=== PATIENT | female | born 1985 | race Two or more races ===

== ENCOUNTER 2024-09-11 01:17 | Emergency (ER) | payer OTHER ==
[~2024-09-11] VITALS: Ht 157.5 cm; Wt 63.5 kg
[2024-09-11] MEDS ORDERED: CLONIDINE HCL 0.1 MG TABLET ONE (01:58)
[2024-09-11] MEDS: CLONIDINE HCL 0.1 MG TABLET PO ONE (02:00)
[2024-09-11 02:03] LABS: ABG BASE EXCESS 1.5 mmol/L (-2.0-3.0); ABG OXYGEN SATURATION 96.2 % (94.0-98.0); ABG PH 7.378 (7.350-7.450); ABG PO2 92.3 mmHg (83.0-108.0); ABG TOTAL HEMOGLOBIN 11.1 G/dL (12.0-16.0); COHb 0.2 % (0.5-1.5); MetHb 0.1 % (0.0-1.5); O2Hb 95.9 % (94.0-97.0); SITE, ABG LEFT RADIAL
[2024-09-11 02:10] LABS: BASOPHILS # (AUTO) 0.1 K/uL (0.0-0.2); BASOPHILS % (AUTO) 0.7 % (0.0-2.0); EOSINOPHILS # (AUTO) 0.5 K/uL (0.0-0.7); EOSINOPHILS % (AUTO) 6.7 % (0.0-6.0); HEMATOCRIT 33 % (33-45); HEMOGLOBIN 10.7 g/dL (11.5-14.8); LYMPHOCYTES # (AUTO) 1.7 K/uL (0.8-4.8); LYMPHOCYTES % (AUTO) 22.1 % (20.0-44.0); MEAN CORPUSCULAR HEMOGLOBIN 28 PG (26.0-33.0); MEAN CORPUSCULAR HGB CONC 33 g/dl (31.0-36.0); MEAN CORPUSCULAR VOLUME 85 fL (82-100); MONOCYTES # (AUTO) 0.5 K/uL (0.1-1.30); NEUTROPHILS # (AUTO) 4.9 K/uL (1.8-8.9); NEUTROPHILS % (AUTO) 64.5 % (43.0-81.0); PLATELET COUNT (AUTO) 434 K/uL (150-450); RED BLOOD CELL COUNT(AUTO) 3.83 MIL/uL (4.0-5.2); RED CELL DISTRIBUTION WIDTH 16.7 % (11.5-15.0); WHITE BLOOD COUNT (AUTO) 7.6 K/uL (4.3-11.0)
[2024-09-11 02:27] LABS: CALCIUM, SERUM 8.4 mg/dL (8.5-10.1); CARBON DIOXIDE 28 mmol/L (21-32); CHLORIDE 106 mmol/L (98-107); CREATININE 1.6 mg/dL (0.6-1.3); GLUCOSE 206 mg/dL (74-106); POTASSIUM 5.4 mmol/L (3.5-5.1); SODIUM SERUM 140 mmol/L (136-145); UREA NITROGEN, BLOOD 35 mg/dL (7-18)
[2024-09-11 02:41] LABS: ALANINE AMINOTRANSFERASE 35 U/L (12-78); ALBUMIN 1.8 g/dL (3.4-5.0); ALCOHOL, BLOOD < 3 mg/dL (0-10); ALKALINE PHOSPHATASE 116 U/L (46-116); ASPARTATE AMINOTRANSFERASE 37 U/L (15-37); BILIRUBIN,TOTAL 0.1 mg/dL (0.2-1.0); NT-PRO BNP 2022 pg/mL (0-125); TOTAL PROTEIN, SERUM 6.4 g/dL (6.4-8.2)
[2024-09-11 02:43] LABS: APPEARANCE,URINE CLEAR (CLEAR); BILIRUBIN,URINE NEGATIVE (NEGATIVE); BLOOD, URINE 1+ Ery/uL (NEGATIVE); COLOR,URINE YELLOW (YELLOW); KETONES,URINE NEGATIVE (NEGATIVE); LEUKOCYTE ESTERASE ,URINE NEGATIVE (NEGATIVE); NITRITE, URINE NEGATIVE (NEGATIVE); PH,URINE 7.5 (5.0-8.0); PROTEIN,URINE 3+ mg/dl (NEGATIVE); UGLUCOSE 1+ mg/dL (NEGATIVE); UROBILINOGEN,URINE 0.2 EU/dL (0.2)
[2024-09-11 02:46] LABS: PREGNANCY TEST URINE QUAL NEGATIVE (NEGATIVE)
[2024-09-11 02:57] LABS: ADD URINE CULTURE NO; BACTERIA,URINE 1+ /HPF (None Seen); WBC,URINE 0-2 /HPF (0-3)
[2024-09-11 02:58] LABS: AMPHETAMINE, URINE NEGATIVE (NEGATIVE); BARBITURATE, URINE NEGATIVE (NEGATIVE); BENZODIAZEPINE, URINE NEGATIVE (NEGATIVE); CANNABINOID, URINE NEGATIVE (NEGATIVE); COCCAINE, URINE NEGATIVE (NEGATIVE); MUCUS,URINE Many /LPF (None Seen); OPIATE, URINE NEGATIVE (NEGATIVE); PHENCYCLIDINE SCREEN,URINE NEGATIVE (NEGATIVE)
[2024-09-11] MEDS: hydrALAZINE HCL IV 20 MG VIAL IV ONE (03:00)
[2024-09-11] MEDS ORDERED: hydrALAZINE HCL IV 20 MG VIAL ONE (03:25)
[2024-09-11] MEDS: IV NS 0.9% 1,000 ML IV ONE (03:30)
[2024-09-11] MEDS ORDERED: CT SWABBABLE VALVE TRANS SET 1 EA INFUS.SET MC ONE (03:46)
[2024-09-11] MEDS ORDERED: IOHEXOL-350 100 ML VIAL IV ONE (03:46)
[2024-09-11] MEDS ORDERED: IV NS 0.9% 250 ML IV ONE (03:48)
[2024-09-11] MEDS ORDERED: MORPHINE SULFATE INJ 2 MG/ML DISP.SYRIN ONE (03:55)
[2024-09-11] MEDS: MORPHINE SULFATE INJ 2 MG/ML DISP.SYRIN IV ONE (03:57)
[2024-09-11] MEDS ORDERED: SODIUM POLYSTYRENE SULFONATE 15 G/60 ML BOTTLE ONE (05:09)
[2024-09-11] MEDS: SODIUM POLYSTYRENE SULF. PWD 15 GM UDC RC ONE (05:16)
[2024-09-11] MEDS ORDERED: FURO-145 PO (08:05)
[2024-09-11] MEDS ORDERED: FUROSEMIDE 20 MG/2 ML VIAL ONE (08:07)
[2024-09-11] MEDS: FUROSEMIDE 20 MG/2 ML VIAL IV ONE (08:09)
[2024-09-11] MEDS ORDERED: KETOROLAC TROMETHAMINE 15 MG/ML VIAL ONE (08:15)
[2024-09-11] MEDS: KETOROLAC TROMETHAMINE 15 MG/ML VIAL IV ONE (08:15)
[2024-09-11 08:29] VITALS: BP 141/66; TEMP 98.8; O2SAT 98
[2024-09-12] MEDS ORDERED: METO25TA20 PO (11:44)
[2024-09-12] MEDS ORDERED: INSU100I4 SQ (11:44)
[2024-09-12] MEDS ORDERED: PREG150C93 PO (11:44)
[2024-09-12] MEDS ORDERED: INSU100V7 SQ (11:44)
[2024-09-12] MEDS ORDERED: LEVE100023 PO (11:44)
[2024-09-12] MEDS ORDERED: QUET25TA PO (11:44)
[2024-09-12] MEDS ORDERED: QUET50TA PO (11:44)
[2024-09-12] MEDS ORDERED: AMLO-213 PO (11:44)
== END 2024-09-11 08:29 | disposition home or self-care (01) ==
LOC: ER 01:20
DX: I12.9 Hypertensive chronic kidney disease with stage 1 through stage 4 chronic kidney disease, or unspecified chronic kidney disease (principal); N18.9 Chronic kidney disease, unspecified; R07.2 Precordial pain; R10.2 Pelvic and perineal pain; R60.1 Generalized edema
CPT/HCPCS: 99285; 96374; 96361; 96375; 93005; 71045; 71275; 85025; 85378; 84703; 81001; 36415; 80053; 84484 ×2; 83880; 80320; 80307; J1940; J0360; J7050; J2270; Q9967; J1885; G0480

== ENCOUNTER 2024-09-11 19:37 | Emergency (ER) | payer OTHER ==
[~2024-09-11] VITALS: Ht 157.5 cm; Wt 63.0 kg
[~2024-09-11 19:37] MED LIST: FURO-145 PO
[2024-09-11] MEDS ORDERED: LORAZEPAM INJ 2 MG/ML VIAL ONE (20:22)
[2024-09-11 20:25] LABS: BASOPHILS # (AUTO) 0.1 K/uL (0.0-0.2); BASOPHILS % (AUTO) 0.7 % (0.0-2.0); EOSINOPHILS # (AUTO) 0.5 K/uL (0.0-0.7); EOSINOPHILS % (AUTO) 6.4 % (0.0-6.0); HEMATOCRIT 31 % (33-45); HEMOGLOBIN 10.1 g/dL (11.5-14.8); LYMPHOCYTES # (AUTO) 1.4 K/uL (0.8-4.8); LYMPHOCYTES % (AUTO) 18.2 % (20.0-44.0); MEAN CORPUSCULAR HEMOGLOBIN 28 PG (26.0-33.0); MEAN CORPUSCULAR HGB CONC 32 g/dl (31.0-36.0); MEAN CORPUSCULAR VOLUME 86 fL (82-100); MONOCYTES # (AUTO) 0.5 K/uL (0.1-1.30); MONOCYTES % (AUTO) 6.1 % (2.0-12.0); NEUTROPHILS # (AUTO) 5.3 K/uL (1.8-8.9); NEUTROPHILS % (AUTO) 68.6 % (43.0-81.0); PLATELET COUNT (AUTO) 397 K/uL (150-450); RED BLOOD CELL COUNT(AUTO) 3.63 MIL/uL (4.0-5.2); RED CELL DISTRIBUTION WIDTH 16.9 % (11.5-15.0); WHITE BLOOD COUNT (AUTO) 7.7 K/uL (4.3-11.0)
[2024-09-11] MEDS: IV NS 0.9% 1,000 ML BAG IV ONE (20:25)
[2024-09-11] MEDS: LORAZEPAM INJ 2 MG/ML VIAL IV ONE (20:25)
[2024-09-11 20:40] LABS: SITE, VBG PL; VBG BASE EXCESS 0.2 mmol/L (-2.0-3.0); VBG COHb 0.3 % (0.5-1.5); VBG HCO3 26.5 mmol/L (22.0-29.0); VBG MetHb 0.1 % (0.5-1.5); VBG O2Hb 74.5 % (0-79); VBG OXYGEN SATURATION 74.8 % (60.0-85.0); VBG PCO2 50.5 mmHg (38.0-54.0); VBG PH 7.337 (7.320-7.430); VBG PO2 44.4 mmHg (23.0-48.0); VBG TOTAL HEMOGLOBIN 10.6 G/dL (12.0-16.0)
[2024-09-11 20:47] LABS: ACETONE, SERUM NEGATIVE (NEGATIVE)
[2024-09-11 20:52] LABS: CALCIUM, SERUM 8.3 mg/dL (8.5-10.1); CARBON DIOXIDE 32 mmol/L (21-32); CHLORIDE 101 mmol/L (98-107); CREATININE 1.9 mg/dL (0.6-1.3); POTASSIUM 5.4 mmol/L (3.5-5.1); SODIUM SERUM 137 mmol/L (136-145); UREA NITROGEN, BLOOD 32 mg/dL (7-18)
[2024-09-11 21:01] LABS: GLUCOSE 445 mg/dL (74-106)
[2024-09-11 21:02] LABS: APPEARANCE,URINE SLIGHTLY CLOUDY (CLEAR); BILIRUBIN,URINE NEGATIVE (NEGATIVE); BLOOD, URINE 1+ Ery/uL (NEGATIVE); KETONES,URINE NEGATIVE (NEGATIVE); LEUKOCYTE ESTERASE ,URINE NEGATIVE (NEGATIVE); NITRITE, URINE NEGATIVE (NEGATIVE); PROTEIN,URINE 3+ mg/dl (NEGATIVE); UGLUCOSE 3+ mg/dL (NEGATIVE); UROBILINOGEN,URINE 0.2 EU/dL (0.2)
[2024-09-11 21:03] LABS: COLOR,URINE LIGHT YELLOW (YELLOW)
[2024-09-11 21:05] LABS: ALANINE AMINOTRANSFERASE 40 U/L (12-78); ALBUMIN 1.8 g/dL (3.4-5.0); ALKALINE PHOSPHATASE 132 U/L (46-116); ASPARTATE AMINOTRANSFERASE 30 U/L (15-37); BILIRUBIN,DIRECT 0.1 mg/dL (0.0-0.2); BILIRUBIN,TOTAL 0.2 mg/dL (0.2-1.0); NT-PRO BNP 2498 pg/mL (0-125); TOTAL PROTEIN, SERUM 6.4 g/dL (6.4-8.2)
[2024-09-11 21:18] LABS: ADD URINE CULTURE YES; BACTERIA,URINE Moderate /HPF (None Seen); SQUAMOUS EPITHELIAL CELL,UR 21-50 /HPF (None Seen); WBC,URINE 0-2 /HPF (0-3)
[2024-09-11 21:26] LABS: PREGNANCY TEST SERUM QUAN 1 mIU/mL (0-6)
[2024-09-11] MEDS ORDERED: INSULIN REGULAR, HUMAN 100 UNIT/ML 10 ML VIAL ONE (21:31)
[2024-09-11] MEDS: INSULIN REGULAR, HUMAN 100 UNIT/ML 10 ML VIAL SQ ONE (21:36)
[2024-09-12] MEDS: CLONIDINE HCL 0.1 MG TABLET PO ONE (06:33)
[2024-09-12] MEDS ORDERED: KETOROLAC TROMETHAMINE 15 MG/ML VIAL ONE (07:01)
[2024-09-12] MEDS: KETOROLAC TROMETHAMINE 15 MG/ML VIAL IM ONE (07:03)
[2024-09-12 07:20] VITALS: BP 160/84; TEMP 98; O2SAT 99
[2024-09-12] MEDS ORDERED: INSU100I4 SQ (11:44)
[2024-09-12] MEDS ORDERED: INSU100V7 SQ (11:44)
[2024-09-12] MEDS ORDERED: PREG150C93 PO (11:44)
[2024-09-12] MEDS ORDERED: QUET50TA PO (11:44)
[2024-09-12] MEDS ORDERED: METO25TA20 PO (11:44)
[2024-09-12] MEDS ORDERED: LEVE100023 PO (11:44)
[2024-09-12] MEDS ORDERED: QUET25TA PO (11:44)
[2024-09-12] MEDS ORDERED: AMLO-213 PO (11:44)
[2024-09-13] MEDS ORDERED: BACL5TAB PO (16:23)
== END 2024-09-12 07:21 ==
LOC: ER 19:40
DX: R73.9 Hyperglycemia, unspecified (principal); R10.2 Pelvic and perineal pain; Z79.899 Other long term (current) drug therapy
CPT/HCPCS: 99285; 96374; 96361; 93005; 82803 ×2; 85025; 80048; 87086; 82010; 80076; 81001; 36415; 84484; 83880; 82962 ×2; 84702; 96372 ×2; J2060; J1815; J7030; J1885

== ENCOUNTER 2024-09-12 08:34 | Inpatient (IN) | payer OTHER ==
[~2024-09-12] VITALS: Ht 154.9 cm; Wt 59.7 kg
[2024-09-12 09:09] LABS: BASOPHILS # (AUTO) 0.1 K/uL (0.0-0.2); BASOPHILS % (AUTO) 0.8 % (0.0-2.0); EOSINOPHILS # (AUTO) 0.6 K/uL (0.0-0.7); EOSINOPHILS % (AUTO) 8.4 % (0.0-6.0); HEMATOCRIT 33 % (33-45); HEMOGLOBIN 10.7 g/dL (11.5-14.8); LYMPHOCYTES # (AUTO) 2.2 K/uL (0.8-4.8); LYMPHOCYTES % (AUTO) 32.2 % (20.0-44.0); MEAN CORPUSCULAR HEMOGLOBIN 28 PG (26.0-33.0); MEAN CORPUSCULAR HGB CONC 33 g/dl (31.0-36.0); MEAN CORPUSCULAR VOLUME 86 fL (82-100); MONOCYTES # (AUTO) 0.4 K/uL (0.1-1.30); MONOCYTES % (AUTO) 6.4 % (2.0-12.0); NEUTROPHILS # (AUTO) 3.5 K/uL (1.8-8.9); NEUTROPHILS % (AUTO) 52.2 % (43.0-81.0); PLATELET COUNT (AUTO) 406 K/uL (150-450); RED BLOOD CELL COUNT(AUTO) 3.81 MIL/uL (4.0-5.2); RED CELL DISTRIBUTION WIDTH 16.8 % (11.5-15.0); WHITE BLOOD COUNT (AUTO) 6.7 K/uL (4.3-11.0)
[2024-09-12 09:21] LABS: CALCIUM, SERUM 8.3 mg/dL (8.5-10.1); CREATININE 1.7 mg/dL (0.6-1.3); POTASSIUM 4.1 mmol/L (3.5-5.1)
[2024-09-12] MEDS ORDERED: ACETAMINOPHEN 325 MG TABLET PO PRN (09:30)
[2024-09-12] MEDS ORDERED: ALBUTEROL FS 2.5 MG/0.5 ML VIAL.NEB NEB PRN (09:30)
[2024-09-12] MEDS ORDERED: MORPHINE SULFATE INJ 2 MG/ML DISP.SYRIN ONE (09:41)
[2024-09-12] MEDS: MORPHINE SULFATE INJ 2 MG/ML DISP.SYRIN IV PRN (09:46)
[2024-09-12] MEDS: ALBUTEROL FS 2.5 MG/3 ML VIAL.NEB IH SCH (10:00)
[2024-09-12] MEDS: INSULIN GLARGINE, 100 UNIT/ML CARTRIDGE SQ SCH (10:30)
[2024-09-12] MEDS ORDERED: hydrALAZINE HCL IV 20 MG VIAL IV PRN (10:30)
[2024-09-12] MEDS: AMLODIPINE BESYLATE 5 MG TABLET PO SCH (10:42)
[2024-09-12] MEDS ORDERED: INSU100I4 SQ (11:44)
[2024-09-12] MEDS ORDERED: PREG150C93 PO (11:44)
[2024-09-12] MEDS ORDERED: INSU100V7 SQ (11:44)
[2024-09-12] MEDS ORDERED: QUET50TA PO (11:44)
[2024-09-12] MEDS ORDERED: LEVE100023 PO (11:44)
[2024-09-12] MEDS ORDERED: METO25TA20 PO (11:44)
[2024-09-12] MEDS ORDERED: AMLO-213 PO (11:44)
[2024-09-12] MEDS ORDERED: QUET25TA PO (11:44)
[2024-09-12] MEDS: BLOOD SUGAR DIAGNOSTIC 1 EACH STRIP IN SCH (12:11)
[2024-09-12] MEDS: INSULIN REGULAR, HUMAN 100 UNIT/ML 3 ML VIAL SQ PRN (12:12)
[2024-09-12] MEDS ORDERED: IBUPROFEN 400 MG TABLET PO PRN (12:30)
[2024-09-12] MEDS: IPRATROPIUM NEB FS 0.5 MG/2.5 ML AMPUL.NEB HHN SCH (13:30)
[2024-09-12] MEDS: GUAIFENESIN LA 600 MG TABLET.SA PO SCH (15:21)
[2024-09-12 20:07] VITALS: O2SAT 100
[2024-09-12 20:12] VITALS: O2SAT 100
[2024-09-12 20:28] VITALS: BP 144/111; TEMP 98; O2SAT 98
[2024-09-12] MEDS: LEVETIRACETAM (250 MG) 250 MG TABLET PO SCH (20:28)
[2024-09-12] MEDS: HEPARIN SODIUM, PORCINE 5000 UNITS/1 ML VIAL SQ SCH (20:30)
[2024-09-12 23:15] VITALS: O2SAT 100
[2024-09-13] VITALS (12 sets, daily range): BP systolic 158–180; BP diastolic 71–95; TEMP 97.5–98.6; O2SAT 94–100
[2024-09-13 06:19] LABS: BASOPHILS % (AUTO) 0.8 % (0.0-2.0); EOSINOPHILS # (AUTO) 0.5 K/uL (0.0-0.7); EOSINOPHILS % (AUTO) 8.2 % (0.0-6.0); HEMATOCRIT 29 % (33-45); HEMOGLOBIN 9.7 g/dL (11.5-14.8); LYMPHOCYTES # (AUTO) 2.1 K/uL (0.8-4.8); LYMPHOCYTES % (AUTO) 37.8 % (20.0-44.0); MEAN CORPUSCULAR HEMOGLOBIN 28 PG (26.0-33.0); MEAN CORPUSCULAR HGB CONC 33 g/dl (31.0-36.0); MEAN CORPUSCULAR VOLUME 85 fL (82-100); MONOCYTES # (AUTO) 0.4 K/uL (0.1-1.30); MONOCYTES % (AUTO) 7.2 % (2.0-12.0); NEUTROPHILS # (AUTO) 2.6 K/uL (1.8-8.9); PLATELET COUNT (AUTO) 354 K/uL (150-450); RED BLOOD CELL COUNT(AUTO) 3.43 MIL/uL (4.0-5.2); RED CELL DISTRIBUTION WIDTH 16.6 % (11.5-15.0); WHITE BLOOD COUNT (AUTO) 5.7 K/uL (4.3-11.0)
[2024-09-13 06:38] LABS: ALBUMIN 1.6 g/dL (3.4-5.0); BILIRUBIN,TOTAL 0.2 mg/dL (0.2-1.0); CALCIUM, SERUM 8.5 mg/dL (8.5-10.1); MAGNESIUM 2.4 mg/dL (1.8-2.4); PHOSPHORUS 5.2 mg/dL (2.5-4.9); POTASSIUM 4.3 mmol/L (3.5-5.1); TOTAL PROTEIN, SERUM 5.8 g/dL (6.4-8.2)
[2024-09-13] MEDS: hydrALAZINE HCL 50 MG TABLET PO SCH (08:51)
[2024-09-13] MEDS: AMLODIPINE BESYLATE 5 MG TABLET PO SCH (08:52)
[2024-09-13 08:57] LABS: THYROID STIMULATING HORMONE 9.87 uIU/mL (0.358-3.74)
[2024-09-13] MEDS ORDERED: FUROSEMIDE 20 MG TABLET PO SCH (09:00)
[2024-09-13] MEDS: IV NS 0.9% 1,000 ML IV PRN (14:58)
[2024-09-13] MEDS ORDERED: BACL5TAB PO (16:23)
[2024-09-13 18:05] LABS: APPEARANCE,URINE SLIGHTLY CLOUDY (CLEAR); BILIRUBIN,URINE NEGATIVE (NEGATIVE); BLOOD, URINE TRACE-INTA Ery/uL (NEGATIVE); COLOR,URINE YELLOW (YELLOW); KETONES,URINE NEGATIVE (NEGATIVE); NITRITE, URINE NEGATIVE (NEGATIVE); PROTEIN,URINE 3+ mg/dl (NEGATIVE); UGLUCOSE 2+ mg/dL (NEGATIVE); UROBILINOGEN,URINE 0.2 EU/dL (0.2)
[2024-09-13 18:20] LABS: CREATININE, URINE 42.2 MG/DL (30.0-125.0); URINE TOTAL PROTEIN 474.4 mg/dL (0-11.9)
[2024-09-13 18:33] LABS: ADD URINE CULTURE YES; BACTERIA,URINE 1+ /HPF (None Seen); LEUKOCYTE ESTERASE ,URINE 1+ (NEGATIVE); WBC,URINE 21-50 /HPF (0-3)
[2024-09-13 18:58] LABS: EOSINOPHIL,URINE None Seen
[2024-09-14] VITALS (15 sets, daily range): BP systolic 102–159; BP diastolic 59–94; TEMP 98.4–98.8; O2SAT 96–100
[2024-09-14 03:10] LABS: PTH, INTACT 15 pg/mL (15-65)
[2024-09-14 06:24] LABS: BASOPHILS % (AUTO) 0.7 % (0.0-2.0); EOSINOPHILS # (AUTO) 0.3 K/uL (0.0-0.7); EOSINOPHILS % (AUTO) 4.6 % (0.0-6.0); HEMATOCRIT 28 % (33-45); HEMOGLOBIN 9.1 g/dL (11.5-14.8); LYMPHOCYTES # (AUTO) 1.8 K/uL (0.8-4.8); LYMPHOCYTES % (AUTO) 29.5 % (20.0-44.0); MEAN CORPUSCULAR HEMOGLOBIN 28 PG (26.0-33.0); MEAN CORPUSCULAR HGB CONC 33 g/dl (31.0-36.0); MEAN CORPUSCULAR VOLUME 84 fL (82-100); MONOCYTES # (AUTO) 0.4 K/uL (0.1-1.30); MONOCYTES % (AUTO) 6.4 % (2.0-12.0); NEUTROPHILS # (AUTO) 3.5 K/uL (1.8-8.9); NEUTROPHILS % (AUTO) 58.8 % (43.0-81.0); PLATELET COUNT (AUTO) 298 K/uL (150-450); RED BLOOD CELL COUNT(AUTO) 3.31 MIL/uL (4.0-5.2); RED CELL DISTRIBUTION WIDTH 16.7 % (11.5-15.0)
[2024-09-14 07:05] LABS: ALBUMIN 1.6 g/dL (3.4-5.0); BILIRUBIN,TOTAL 0.1 mg/dL (0.2-1.0); CALCIUM, SERUM 8.3 mg/dL (8.5-10.1); CREATININE 1.8 mg/dL (0.6-1.3); MAGNESIUM 2.3 mg/dL (1.8-2.4); PHOSPHORUS 4.7 mg/dL (2.5-4.9); POTASSIUM 4.2 mmol/L (3.5-5.1); TOTAL PROTEIN, SERUM 5.5 g/dL (6.4-8.2)
[2024-09-14] MEDS: INSULIN ASPART/LISPRO 100 UNIT/ML CARTRIDGE SQ SCH (08:00)
[2024-09-14] MEDS: METOPROLOL TARTRATE 25 MG TABLET PO SCH (08:54)
[2024-09-14] MEDS: PREGABALIN 25 MG CAPSULE PO SCH (08:54)
[2024-09-14] MEDS: QUETIAPINE FUMARATE 25 MG TABLET PO SCH ×2 (08:55→18:03)
[2024-09-14] MEDS: BACLOFEN (10 MG) 10 MG TABLET PO SCH (08:55)
[2024-09-14] MEDS: PREGABALIN 100 MG CAPSULE PO SCH (08:56)
[2024-09-14] MEDS ORDERED: AMLODIPINE BESYLATE 5 MG TABLET PO SCH (09:00)
[2024-09-14] MEDS ORDERED: METOPROLOL TARTRATE 25 MG TABLET PO SCH (09:00)
[2024-09-14] MEDS ORDERED: AMLODIPINE BESYLATE 10 MG TABLET PO SCH (09:00)
[2024-09-14] MEDS ORDERED: LEVETIRACETAM SOL (5 ML) 100 MG/ML UDC PO SCH ×2 (09:00)
[2024-09-14 10:11] LABS: *SPE A/G RATIO 0.6 (0.7-1.7); *SPE ALBUMIN 1.8 g/dL (2.9-4.4); *SPE ALPHA-1-GLOBULIN 0.3 g/dL (0.0-0.4); *SPE ALPHA-2-GLOBULIN 0.9 g/dL (0.4-1.0); *SPE GLOBULIN, TOTAL 3.1 g/dL (2.2-3.9); *SPE M-SPIKE Not Observed g/dL (Not Observed); *SPE PROTEIN TOTAL 4.9 g/dL (6.0-8.5)
[2024-09-14] MEDS: DEXTROSE 50%-WATER 50 ML DISP.SYRIN IV PRN (17:16)
[2024-09-14] MEDS ORDERED: INSULIN GLARGINE, 100 UNIT/ML CARTRIDGE SQ SCH ×2 (22:00)
[2024-09-15] VITALS (16 sets, daily range): BP systolic 114–174; BP diastolic 68–91; TEMP 98.1–98.4; O2SAT 94–100
[2024-09-15] MEDS: LIDOCAINE 5% (PATCH) 1 EA PATCH TP SCH (17:41)
[2024-09-16] VITALS (13 sets, daily range): BP systolic 119–175; BP diastolic 71–89; TEMP 98.1–98.4; O2SAT 96–100
[2024-09-16 06:47] LABS: CALCIUM, SERUM 7.9 mg/dL (8.5-10.1); CREATININE 2.1 mg/dL (0.6-1.3); POTASSIUM 6.1 mmol/L (3.5-5.1)
[2024-09-16] MEDS ORDERED: FUROSEMIDE 20 MG/2 ML VIAL IV SCH (08:30)
[2024-09-16] MEDS: SODIUM ZIRCONIUM CYCLOSILICATE 10 GM POWD.PACK PO SCH (09:47)
[2024-09-16] MEDS: PREGABALIN 100 MG CAPSULE PO SCH (13:00)
[2024-09-17] VITALS (11 sets, daily range): BP systolic 133–142; BP diastolic 74–79; TEMP 98.1–98.4; O2SAT 96–100
[2024-09-17] MEDS: SODIUM POLYSTYRENE SULFONATE 15 G/60 ML BOTTLE PO ONE (10:00)
[2024-09-17] MEDS: ONDANSETRON HCL/PF 4 MG/2 ML VIAL IVP PRN (10:11)
[2024-09-17 11:41] LABS: BASOPHILS % (AUTO) 0.6 % (0.0-2.0); EOSINOPHILS # (AUTO) 0.4 K/uL (0.0-0.7); EOSINOPHILS % (AUTO) 7.8 % (0.0-6.0); HEMATOCRIT 26 % (33-45); HEMOGLOBIN 8.4 g/dL (11.5-14.8); LYMPHOCYTES # (AUTO) 1.3 K/uL (0.8-4.8); LYMPHOCYTES % (AUTO) 24.7 % (20.0-44.0); MEAN CORPUSCULAR HEMOGLOBIN 28 PG (26.0-33.0); MEAN CORPUSCULAR HGB CONC 32 g/dl (31.0-36.0); MEAN CORPUSCULAR VOLUME 86 fL (82-100); MONOCYTES # (AUTO) 0.5 K/uL (0.1-1.30); NEUTROPHILS % (AUTO) 57.9 % (43.0-81.0); PLATELET COUNT (AUTO) 276 K/uL (150-450); RED BLOOD CELL COUNT(AUTO) 3.05 MIL/uL (4.0-5.2); RED CELL DISTRIBUTION WIDTH 16.7 % (11.5-15.0); WHITE BLOOD COUNT (AUTO) 5.2 K/uL (4.3-11.0)
[2024-09-17 11:57] LABS: ALBUMIN 1.5 g/dL (3.4-5.0); BILIRUBIN,TOTAL 0.1 mg/dL (0.2-1.0); CALCIUM, SERUM 8.1 mg/dL (8.5-10.1); CREATININE 1.8 mg/dL (0.6-1.3); MAGNESIUM 2.2 mg/dL (1.8-2.4); PHOSPHORUS 5.2 mg/dL (2.5-4.9); POTASSIUM 4.3 mmol/L (3.5-5.1); TOTAL PROTEIN, SERUM 5.4 g/dL (6.4-8.2)
[2024-09-17] MEDS: IV NS 0.9% 1,000 ML IV ONE (15:26)
[2024-09-18] VITALS (10 sets, daily range): BP systolic 101–142; BP diastolic 62–76; TEMP 97.6–98.4; O2SAT 97–100
[2024-09-18 12:52] LABS: ALBUMIN 1.7 g/dL (3.4-5.0); BILIRUBIN,TOTAL 0.2 mg/dL (0.2-1.0); CALCIUM, SERUM 8.5 mg/dL (8.5-10.1); CREATININE 1.8 mg/dL (0.6-1.3); MAGNESIUM 2.4 mg/dL (1.8-2.4); PHOSPHORUS 5.2 mg/dL (2.5-4.9); TOTAL PROTEIN, SERUM 6.1 g/dL (6.4-8.2)
[2024-09-18 13:26] LABS: BASOPHILS % (AUTO) 0.6 % (0.0-2.0); EOSINOPHILS # (AUTO) 0.5 K/uL (0.0-0.7); HEMATOCRIT 29 % (33-45); HEMOGLOBIN 9.3 g/dL (11.5-14.8); LYMPHOCYTES # (AUTO) 1.5 K/uL (0.8-4.8); LYMPHOCYTES % (AUTO) 26.3 % (20.0-44.0); MEAN CORPUSCULAR HEMOGLOBIN 28 PG (26.0-33.0); MEAN CORPUSCULAR HGB CONC 32 g/dl (31.0-36.0); MEAN CORPUSCULAR VOLUME 87 fL (82-100); MONOCYTES # (AUTO) 0.5 K/uL (0.1-1.30); MONOCYTES % (AUTO) 8.8 % (2.0-12.0); NEUTROPHILS # (AUTO) 3.3 K/uL (1.8-8.9); NEUTROPHILS % (AUTO) 56.3 % (43.0-81.0); PLATELET COUNT (AUTO) 311 K/uL (150-450); RED CELL DISTRIBUTION WIDTH 17.1 % (11.5-15.0); WHITE BLOOD COUNT (AUTO) 5.9 K/uL (4.3-11.0)
[2024-09-19] VITALS (12 sets, daily range): BP systolic 113–148; BP diastolic 64–90; TEMP 97.7–99; O2SAT 96–100
[2024-09-20] VITALS (13 sets, daily range): BP systolic 135–164; BP diastolic 82–95; TEMP 98.1–98.6; O2SAT 91–100
[2024-09-21] VITALS (9 sets, daily range): BP systolic 122–198; BP diastolic 65–97; TEMP 98.1–98.2; O2SAT 93–100
[2024-09-21] MEDS: AMLODIPINE BESYLATE 5 MG TABLET PO SCH (10:30)
[2024-09-22] VITALS (10 sets, daily range): BP systolic 144; BP diastolic 84; TEMP 98.8; O2SAT 96–99
== END 2024-09-22 23:00 | disposition left against medical advice (07) | DRG 143 ==
LOC: ER 08:36 → MED 09:45
PROVIDERS: ADMIT Internal Medicine; ATTEND Nurse Practitioner Acute Care
DX: T17.990A Other foreign object in respiratory tract, part unspecified in causing asphyxiation, initial encounter (principal); N17.0 Acute kidney failure with tubular necrosis; E43 Unspecified severe protein-calorie malnutrition; E11.22 Type 2 diabetes mellitus with diabetic chronic kidney disease; J96.10 Chronic respiratory failure, unspecified whether with hypoxia or hypercapnia; F29 Unspecified psychosis not due to a substance or known physiological condition; E88.09 Other disorders of plasma-protein metabolism, not elsewhere classified; I50.9 Heart failure, unspecified; I13.0 Hypertensive heart and chronic kidney disease with heart failure and stage 1 through stage 4 chronic kidney disease, or unspecified chronic kidney disease; D64.9 Anemia, unspecified; W44.F9XA Other object of natural or organic material, entering into or through a natural orifice, initial encounter; N17.9 Acute kidney failure, unspecified; Y92.89 Other specified places as the place of occurrence of the external cause; Z93.0 Tracheostomy status; N18.9 Chronic kidney disease, unspecified; E87.5 Hyperkalemia; G89.29 Other chronic pain; M89.8X9 Other specified disorders of bone, unspecified site; N13.30 Unspecified hydronephrosis; Z88.6 Allergy status to analgesic agent; Z88.0 Allergy status to penicillin; Z79.4 Long term (current) use of insulin; Z79.899 Other long term (current) drug therapy; G40.909 Epilepsy, unspecified, not intractable, without status epilepticus; R79.89 Other specified abnormal findings of blood chemistry; H54.7 Unspecified visual loss; E86.9 Volume depletion, unspecified; M48.00 Spinal stenosis, site unspecified; Z87.440 Personal history of urinary (tract) infections; Z87.442 Personal history of urinary calculi; Z91.199 Patient's noncompliance with other medical treatment and regimen due to unspecified reason; N25.81 Secondary hyperparathyroidism of renal origin
CPT/HCPCS: 31720; 36415; 70490-TC; 71045-TC; 72100-TC; 76770-TC; 80048-TC; 80053-TC; 81001; 82550-TC; 82570-TC; 82728-TC; 82962-TC; 83540-TC; 83735-TC; 83880; 83970; 84100-TC; 84155; 84165; 84300-TC; 84439-TC; 84443-TC; 84484-TC; 84702-TC; 85025-TC; 93307-TC; 94640-TC; 94760-TC; 94761-TC; 94799-TC; 97110-TC; 97116-TC; 97530-TC; 97535-TC; A4223; A4624; A7526; G0378; J1644; J1815; J1940; J2270; J2405; J7030